=== PATIENT | female | born 1985 | race Caucasian/White ===

== ENCOUNTER → 2024-08-10 | Outpatient (CLI) | payer SELFPAY ==
[2024-08-14 15:07] LABS: HPV APTIMA, High Risk Negative (Negative)
== END | disposition home or self-care (01) ==
LOC: LABSPEC 16:09
PROVIDERS: Referring Provider Advanced Practice Midwife; Visit Provider Advanced Practice Midwife
DX: Z12.4 Encounter for screening for malignant neoplasm of cervix (principal)
CPT/HCPCS: 87624; 88175; G0145

== ENCOUNTER → 2024-09-01 | Outpatient (CLI) | payer SELFPAY ==
--- NOTE | 2024-09-01 09:42 | US_ITS ---
PROCEDURE: TRANSVAGINAL NON- 09/01/2024 REASON FOR EXAM: INFERTILITY TECHNIQUE: TRANSVAGINAL NON- COMPARISON: None FINDINGS: Measurements: Uterus: 10.3 cm x 5.4 cm x 5.2 cm with a volume of 150 mL heterogeneous appearance of the uterus suggestive of fibroid change. Endometrial Thickness: 9.2 mm. It is heterogeneous in echotexture. Right Ovary: 3.2 cm x 2.2 cm x 2.2 cm with a volume of 8.07 mL. Left Ovary: 3 cm x 2.9 cm x 1.3 cm with a volume of 5.87 mL. Uterus: Heterogeneous echotexture suggestive of fibroid change. Endometrium: 9.2 mm. Heterogeneous in appearance. Right ovary: 1.9 cm 1.8 cm x 2 cm complex nodule in the right ovary. Left ovary: Normal size and echotexture. Other: Nabothian cysts. US/Transvaginal Non- IMPRESSION: Heterogeneous appearance of the uterus suggestive of fibroid change. 1.9 cm 1.8 cm x 2 cm complex nodule in the right ovary as described. Sonograph ic follow-up recommended. Reading Location: [facility]
== END | disposition home or self-care (01) ==
PROVIDERS: PCP Family Medicine; Referring Provider Advanced Practice Midwife; Visit Provider Advanced Practice Midwife
DX: N97.9 Female infertility, unspecified (principal); D21.9 Benign neoplasm of connective and other soft tissue, unspecified
CPT/HCPCS: 76830

== ENCOUNTER → 2024-09-19 | Outpatient (CLI) | payer SELFPAY ==
--- OUTSIDE RECORDS SUMMARY | 2024-09-19 08:53 | XMS RPT_ITS | CCD ---
Author Organization [facility]form[facility]ly [facility] Team Providers Care Manager Technical Training Name Role Phone SYDNEE CARTER Primary Care Unavailable VACCARISYDNEE MURILLO Admitting Unavailable VACCARISYDNEE MURILLO Attending Unavailable VACCSYDNEE ASCENCIO Consulting Unavailable PROVIDER, UNKNOWN Consulting Unavailable PROVIDER, UNKNOWN Consulting Unavailable PROVIDER, UNKNOWN Consulting Unavailable Vaccarelli PA-C, Ninoska Primary Care Provider Vidya vailable Vaccarelli PA-C, Ninoska Attending Provider Fawad mead Vaccarejuvei CARLAC, Ninoska Referring Provider Fawad Boudreaux CNM, Zena Attending Provider Zena Boudreaux CNM Referring Provider Vaccarelli PAHanhC, Ninoska Primary Care Provider Vidya Dr. Sydnee Greene MD Primary Care Provider Kaelynarejuvei Randy VASQUEZi Attending Unavailable Vaccarelli PA, Ninoska Primary Care Unavailable Zena Boudreaux Attending Unavailable Zena Boudreaux Referring Unavailable Sydnee Carter Primary Care Unavailable Zena Boudreaux Attending Unavailable Zena Boudreaux Referring Unavailable Vaccarelli PA, Ninoska Primary Care Unavailable Vaccarelli PA, Ninoska Primary Care Unavailable Vaccarejuvei PA, Ninoska Referring Unavailable Zena Boudreaux Attending Unavailable Problems Problem Classification Problem Date Documented Da te Episodic/Chronic Female infertility (4 sources) 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; Translations: [Female infertility, unspecified] Onset: 06-08-2024 Chronic Other and unspecified benign neoplasm (6 sources) Leiomyoma; Translations: [Benign neoplasm of connective and other soft tissue, unspecified] 08-10-2024 Episodic Other and unspecified benign neoplasm (1 source) Benign neoplasm of connective and other soft tissue, unspecified; Translations: [Benign neoplasm of connective and other soft tissue, unspecified] Onset: 08-10-2024 Episodic Other female genital disorders (1 source) Other specified conditions associated with female genital organs and menstrual cycle; Translations: [Other specified conditions associated with female genital organs and menstrual cycle] Onset: 06-08-2024 Episodic Other screening for suspected conditions (not mental disorders or infectious disease) (5 sources) Patient encounter status; Translations: [Encounter for screening for other suspected endocrine disorder] Onset: 08-10-2024 08-10-2024 Episodic Residual codes; unclassified (6 sources) Infertile 08-10-2024 Episodic Results Test Name Value Interpretation Reference Range Facility Transvaginal Non-on 09-01-2024 Transvaginal Non- [facility] Imaging Services [address] [place] [address] Transvaginal Non- MR#: [id number] Acct: [id number] Name: TOREY MCLEAN Rep #: [id number] : 1985 F 38 From: Andres carlson MD PCP: Dr. Sydnee Carter MD Status: REG CLI Study: Transvaginal Non- Date of Exam: Exam# [id number] Ordering Dr: Zena Boudreaux CNM PROCEDURE: TRANSVAGINAL NON- 09/01/2024 REASON FOR EXAM: INFERTILITY TECHNIQUE: TRANSVAGINAL NON- COMPARISON: None FINDINGS: Measurements: Uterus: 10.3 cm x 5.4 cm x 5.2 cm with a volume of 150 mL heterogeneous appearance of the uterus suggestive of fibroid change. Endometrial Thickness: 9.2 mm. It is heterogeneous in echotexture. Right Ovary: 3.2 cm x 2.2 cm x 2.2 cm with a volume of 8.07 mL. Left Ovary: 3 cm x 2.9 cm x 1.3 cm with a volume of 5.87 mL. Uterus: Heterogeneous echotexture suggestive of fibroid change. Endometrium: 9.2 mm. Heterogeneous in appearance. Right ovary: 1.9 cm 1.8 cm x 2 cm complex nodule in the right ovary. Left ovary: Normal size and echotexture. Other: Nabothian cysts. US/Transvaginal Non- IMPRESSION: Heterogeneous appearance of the uterus suggestive of fibroid change. 1.9 cm 1.8 cm x 2 cm complex nodule in the right ovary as described. Sonographic follow-up recommended. Reading Location: [id number] CC: GERA Boudreaux; Dr. Sydnee Carter MD Care Connector: Signed Normal [facility] PAP IG HPV APTIMA 16/18,45on 08-14-2024 ADEQ Comment Normal . [facility] Comment on above: Order Comment: Speci men Comment: [id number] Specimen Comment: No. of containers..01 ThinPrep Vial Result Comment: Sati sfactory for evaluation. Endocervical and/or squamous metaplastic cells (endocervical component) are present. Performed By: #### L 7400.0280 #### [facility] [address] [place], [place], [id number] COMM . Normal . [facility] Comment on above: Order Comment: Speci men Comment: [id number] Specimen Comment: No. of containers..01 ThinPrep Vial Performed By: #### L 7400.0280 #### [facility] [address] [place], [address] COMMENT Comment Normal . [facility] Comment on above: Order Comment: Speci men Comment: [id number] Specimen Comment: No. of containers..01 ThinPrep Vial Result Comment: This liquid based ThinPrep(R) pap test was screened with the use of an image guided system. Performed By: #### L 7400.0280 #### [facility] [address] [place], [address] DIAG Comment Normal . [facility] Comment on above: Order Comment: Speci men Comment: [id number] Specimen Comment: No. of containers..01 ThinPrep Vial Result Comment: NEGA TIVE FOR INTRAEPITHELIAL LESION OR MALIGNANCY. Performed By: #### L 7400.0280 #### [facility] [address] [place], [address] HPV APTIMA, HR Negative Normal Negative [facility] Comment on above: Order Comment: Speci men Comment: [id number] Specimen Comment: No. of containers..01 ThinPrep Vial Result Comment: This nucleic acid amplification test detects fourteen high- risk HPV types (16,18,31,33,35,39,45,51,52,56,58,59,66,68) without differentiation. Performed By: #### L 7400.0280 #### [facility] [address] [place], [address] HPV Eliza Rfx Comment Normal . [facility] Comment on above: Order Comment: Speci men Comment: [id number] Specimen Comment: No. of containers..01 ThinPrep Vial Result Comment: Crit cristy not met, HPV Genotype not performed. Performed at: - [facility] [id number] Vocational Education Teacher: Janel Sales MD, Phone: [phone] Performed at: = - [facility] [address] [id number] Vocational Education Teacher: Janel Sales MD, Phone: [phone] Performed By: #### L 7400.0280 #### [facility] [address] [place], [place], [id number] PAPSMR Comment Normal . [facility] Comment on above: Order Comment: Speci men Comment: [id number] Specimen Comment: No. of containers..01 ThinPrep Vial Result Comment: The Pap smear is a screening test designed to aid in the detection of premalignant and malignant conditions of the uterine cervix. It is not a diagnostic procedure and should not be used as the sole means of detecting cervical cancer. Both false-positive and false-negative reports do occur. Performed By: #### L 7400.0280 #### [facility] [address] [place], [place], [id number] PERFORM Comment Normal . [facility] Comment on above: Order Comment: Speci men Comment: [id number] Specimen Comment: No. of containers..01 ThinPrep Vial Result Comment: Yaquelin Del Cid, Bead Trimmer (ASCP) Performed By: #### L 7400.0280 #### [facility] [address] [place], [address] Cervical or vaginal specimen microscopic examination by liquid based cytology (reportOrdered By: Zena Boudreaux on 08-10-2024 Cytology report Cyto stain.thin prep Doc (Cvx/Vag) Comment . [facility] Comment on above: Criteria not met, HP V Genotype not performed.Performed at: [facility] [id number] Director: Janel Sales MD, Phone: [phone] at: =[facility] [id number] Director: Janel Sales MD, Phone: [phone] Cervical or vagninal specime n microscopic examination by cytology stain (reported asOrdered By: Zena Boudreaux on 08-10-2024 Cytology report Cyto stain Doc (Cvx/Vag) Comment . [facility] Comment on above: The Pap smear is a s creening test designed to aid in thedetection of premalignant and malignant conditions of theuterine cervix. It is not a diagnostic procedure andshould not be used as the sole means of detecting cervicalcancer. Both false-positive and false-negative reports dooccur. Detection in cervical specim en of any of human papilloma virus (HPV) 16, 18, 31, 33,Ordered By: Zena Boudreaux on 08-10-2024 HPV 16+18+31+33+35+39+45+51 +52+56+58+59+66+68 DNA Probe+sig amp Ql (Cvx) Negative Negative [facility] Comment on above: This nucleic acid am plification test detects fourteen high-risk HPV types (16,18,31,33,35,39,45,51,52,56,58,59,66,68)without differentiation. Laboratory - CytologyOrdered By: Zena Boudreaux on 08-10-2024 Bead Trimmer Cyto stain Nom (Cvx/Vag) [ID] Comment . [facility] Comment on above: Mariano Reinoso tologist (ASCP) Laboratory - Miscellaneous t estsOrdered By: Zena Boudreaux on 08-10-2024 Service comment (Unsp spec) [Interp] . . [facility] No Panel InformationOrdered By: Zena Boudreaux on 08-10-2024 Pap Smear Specimen Adequacy Comment . [facility] Comment on above: Satisfactory for milena luation. Endocervical and/or squamous metaplasticcells (endocervical component) are present. 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 Required: No Is patient in pain?: No Allergies No Known Allergies Allergy (Unverified 08/10/24 08:21) Medications ???Medication ???Instructions ???Recorded ???Confirmed ???Type NK 08/10/24 08/10/24 History Is last menstrual period known: Yes Last Menstrual Period: 07/21/24 Post menopausal: No Patient : No : No Do you think of yourself as: straight/heterosexual Current gender identity: female Control Method: none PFSH Medical History (Updated 08/10/24 @ 09:17 by Zena Boudreaux CNM) Vitamin D deficiency PCOS (polycystic ovarian syndrome) Low serum progesterone History of back problems Seasonal allergies Surgical History (Updated 08/09/24 @ 15:45 by Breonna Coon) H/O section Family History (Updated 08/09/24 @ 15:49 by Breonna Coon) Mother , 34 years old Breast cancer Father Arthritis Aunt , 50's Uterine cancer Sister , age 27 Cancer had foot amputated, large tumor removed from groin, and thymus gland removed. cancer spread to her lungs and she . Grandmother , 70's. Ovarian cancer Uterine cancer Social History (Updated 08/09/24 @ 15:45 by Breonna Coon) adopted: No household members: family housing: house number of children: 3 current occupational status: unemployed current occupation: [employer] current occupational exposures/hazards: No pets and animals: Yes pets and animals: dog(s), horse(s) and other details: chickens history of recent travel: Yes ([place]) out of state: Yes out of country: No sexually active: Yes Smoking Status: Never smoker second hand exposure: No alcohol intake: current alcohol intake frequency: holidays/special occasions only Alcohol type: wine substance use type: does not use well-balanced diet: daily or most days caffeine: Yes Type: coffee Number of servings: 1 eating out: other details: 2/ month during the past year weight has: decreased > 10 lbs what type of physical activity do you participate in: walking frequency: 1-2 times per week dominic/jewish: [facility] seatbelt use: sometimes do you feel safe at home: Yes additional social history: - Daniel 4th child @ 10 days old - Trisomy 18 HPI Encounter for routine gynecological examination Details: TOREY MCLEAN is a 38 year old who presents for annual exam. Maternal family hx of cancers- Mother (perri) at age 34 with breast cancer, grandmother (perri) at age 70(?) from uterine cancer and aunt in 50s with uterine cancer. Discussed indepth importance of mammograms, paps and watching for s/s of uterine cancer. Would possibly like to TTC one more time. Has 3 living children, also had child with Trisomy 18 (Nessa) who lived for 10 days. Had labs with previous office except a TSH-ordered. Had external US done this spring which showed a fibroid-requesting internal US. Last PAP: 2011 History of abnormal PAP: no Last mammogram: ordered History of abnormal mammogram: na Colon cancer screening: age 43 Other preventative health care screenings: Rodgers family Female Reproductive History Last Menstrual Period: 07/21/24 Cycle Length: 21-35 Bleeding Duration: 3 Questions: metorrhagia: No, sexually active: Yes, dyspareunia: No and PCB: No ROS Const Constitutional: Reports system reviewed and no additional complaints, except as documented Cardio Card: Reports system reviewed and no additional complaints, except as documented Resp Resp: Reports system reviewed and no additional complaints, except as documented GI GI: Reports system reviewed and no additional complaints, except as documented : Reports system reviewed and no additional complaints, except as documented; Denies difficulty voiding, dysuria or urinary frequency Skin Skin/Breast: Reports system reviewed and no additional complaints, except as documented Neuro Neuro: Reports system reviewed and no additional complaints, except as documented Psych Psych: Reports system reviewed and no additional complaints, except as documented; Denies anhedonia, anxiety or depression Exam Const General: cooperative, healthy appearing, comfortable and no acute distress Orientation: alert, awake and oriented x3 Neck Neck: normal visual inspection and full ROM Thyroid: thyroid normal Chest Breast inspection: normal inspection of the breasts and n (more content not included)... Normal [facility] 06-08-2024 [place] [address] Patient: TOREY MCLEAN Phone#: : [phone] Age: 38 Gender: F Pt. Type: Out Account: [id number] Location: Ordering: SYDNEE CARTER Exam Date: 06/08/2024/9:01 Family Phys: Charge Code: 021097 Physician: Maury Order #: [id number] Dose#: PROCEDURE: PELVIC ULTRASOUND, TRANSABDOMINAL COMPARISON: None. INDICATIONS: Secondary infertility TECHNIQUE: Pelvic ultrasound was performed in the usual manner. FINDINGS: UTERUS: Size is 12.3 x 4.9 x 7.4 cm. Anteriorly is a 12 x 16 millimeter hypoechoic focus, likely fibroid. Endometrial thickness is 5.0 mm. ADNEXAE: Right ovary is 3.8 x 3.6 x 2.5 centimeters. There is a 2.0 x 2.3 x 2.1 centimeter cyst. The left ovary is 2.4 x 1.2 x 2.2 centimeters. CUL-DE-SAC: Normal. No fluid or mass. OTHER: Negative. CONCLUSION: 1. Probable 16 millimeter anterior uterine fibroid. 2. 2.3 centimeter right adnexal cyst. Dictated by: Cara Sherman MD on 06/08/2024 at 16:22 Approved by: Cara Sherman MD on 06/08/2024 at 16:25 Normal [facility] Vital Signs Date Time Vital Sign Value Performing Clinician Clive harp 08-10-2024 08:21-0400 Body height 170.18 cm [facility] 08-10-2024 08:21-0400 Body mass index (BMI) [Ratio] 27.2 kg/m2 [facility] 08-10-2024 08:[id number] [facility] 08-10-2024 08:21-0400 Diastolic blood pressure 72 mm[Hg] [facility] 08-10-2024 08:21-0400 Systolic blood pressure 112 mm[Hg] [facility] Encounters Encounter Date Encounter Type Care Provider Facility Start: 09-01-2024 End: 09-01-2024 ambulatory [facility] Vaccarelli PA-C -Ultrasound [facility] Start: 09-01-2024 End: 09-01-2024 Patient encounter procedure Zena Boudreaux CNM -Ultrasound [facility] Work Phone: Start: 09-01-2024 End: 09-01-2024 ambulatory Zena Boudreaux Facility:[facility] Start: 08-10-2024 End: 08-10-2024 ambulatory [facility] Work Phone: Start: 08-10-2024 End: 08-10-2024 Patient encounter procedure Zena Boudreaux CNM -Laboratory [facility] Work Phone: Start: 08-10-2024 End: 08-10-2024 Patient encounter procedure Zena Boudreaux CNM -[facility] Start: 08-10-2024 End: 08-10-2024 [facility] Start: 08-10-2024 End: 08-10-2024 ambulatory [facility] Vaccarelli PA-C [facility] Work Phone: Start: 08-10-2024 End: 08-10-2024 ambulatory Zena Janusz Facility:[facility] Start: 06-08-2024 Non-patient / Non-visit Ninoska Bui PA-C -[facility] Work Phone: Start: 06-08-2024 End: 06-08-2024 ambulatory SYDNEE CARTER [facility] Procedures Date Procedure Procedure Detail Performing Clinician Start: 09-01-2024 Transvaginal echography Ninoska Bui PA-C Start: 08-10-2024 Liquid based cervica l cytology screening Ninoska Bui PA-C Comment on above: NEGATIVE FOR INTRAEP ITHELIAL LESION OR MALIGNANCY. This liquid based Th inPrep(R) pap test was screened withthe use of an image guided system. Plan of Treatment Date Care Activity Detail Author Liquid based cervical cytology screening [facility] MG Breast - bilateral Screening [facility] MG Breast - bilateral Screening [facility] Thyroid stimulating hormone measurement [facility] US Pelvis transvaginal [facility] Payers Date Payer Category Payer Unknown [id number] 2024 Self-pay 1985 Unknown [id number] [id number] [id number] Unknown Unknown [id number] 2.16.8 [id number] Unknown [id number] 2.16.8 [id number] Unknown [id number] 2.16.8 [id number] Unknown [id number] 2.16.8 [id number] Social History Date Type Detail Facility Start: 08-10-2024 End: 09-05-2024 Tobacco smoking status NHIS Never smoked tobacco (finding) [facility] Start: 1985 Sex Assigned At Female [facility] Gender Identity Identifies as fe male gender (finding) [facility] Sexual Orientation Heterosexual (finding) [facility] Radiology Diagnostic study note 09-01-2024 Note Date & Type Note Facility 09-01-2024 Radiology Diagnostic study note [facility] Imaging Services [address] [place], [place] [address] Transvaginal Non- MR#: [id number] Acct: [id number] Name: TOREY MCLEAN Rep #: [id number] : 1985 F 38 From: Moiz Prince MD PCP: Dr. Sydnee Carter MD Status: R EG CLI Study:Transvaginal Non- Date of Exam: 09/01/24 Exam# [id number] Ordering Dr: Zena Boudreaux CNM PROCEDURE: TRANSVAGINAL NON- 09/01/2024 REASON FOR EXAM: INFERTILITY TECHNIQUE: TRANSVAGINAL NON- COMPARISON: None FINDINGS: Measurements: Uterus: 10.3 cm x 5.4 cm x 5.2 cm with a volume of 150 mL heterogeneous appearance of the uterus suggestive of fibroid change. Endometrial Thickness: 9.2 mm. It is heterogeneous in echotexture. Right Ovary: 3.2 cm x 2.2 cm x 2.2 cm with a volume of 8.07 mL. Left Ovary: 3 cm x 2.9 cm x 1.3 cm with a volume of 5.87 mL. Uterus: Heterogeneous echotexture suggestive of fibroid change. Endometrium: 9.2 mm. Heterogeneous in appearance. Right ovary: 1.9 cm 1.8 cm x 2 cm complex nodule in the right ovary. Left ovary: Normal size and echotexture. Other: Nabothian cysts. US/Transvaginal Non- IMPRESSION: Heterogeneous appearance of the uterus suggestive of fibroid change. 1.9 cm 1.8 cm x 2 cm complex nodule in the right ovary as described. Sonographic follow-up recommended. Reading Location: [id number] CC: GERA Boudreaux; Dr. Sydnee Carter MD ~ Care Connector: Signed [facility] Evaluation note 08-10-2024 Note Date & Type Note Facility 06-04-2025 Evaluation note Diagnosis Onset Date Resolution Fibroid acute August 10, 2024 8:01am Infertility acute August 10 8:01am Encounter for routine gynecological examination noneactive August 10, 2024 8:01am [facility] Work Phone: Clinical Note 06-08-2024 Note Date & Type Note Facility 06-08-2024 Note [facility] Outside Reference US Procedure June 08, 2024 9:01am August 12, 2024 3:46pm Abnormal Evaluation note Note Date & Type Note Facility Evaluation note Diagnosis Onset Date Resolution Fibroid acute August 10, 2024 8:01am Infertility acute August 10 8:01am Encounter for routine gynecological examination noneactive August 10, 2024 8:01am [facility] Work Phone: Reason for referral (narrative) Note Date & Type Note Facility Reason for referral (narrative) No reason for referral information available [facility] Work Phone: Summary Purpose Family History No Family History Records Found Relationship Condition Age at Onset Recorded Date/T bee mother Malignant neoplasm of breast Unknown father Arthritis Unknown aunt Malignant neoplasm of uterus Unknown sister Malignant neoplasm Unknown grandmother Malignant neoplasm of ovary Unknown Malignant neoplasm of uterus Unknown Advance Directives No Advanced Directives Records FoundNo Advanced Directives Records Found Chief Complaint and Reason for Visit Chief Complaint Admit Date 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) August 10, 2024 8:01a m INFERTILITY, FIBROID September 01, 2024 9:3 3am Reason for Visit Admit Date Fibroid August 10, 2024 8:01a m Infertility August 10, 2024 8:01a m Encounter for routine gynecological exam ination August 10, 2024 8:01am Chief Complaint Admit Date 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) August 10, 2024 8:01a m Additional Source Comments INFORMATION SOURCE (unrecogn ized section and content) DATE CREATED AUTHOR 06/11/2024 Shola Moncada [facility] DATE CREATED AUTHOR AUTHOR'S ORGANIZ ATION 09/08/2024 [facility] Care Teams (unrecognized sec tion and content) Team Status: Active Member Role Status Dates Ninoska VASQUEZ PA-C Primary Care Provider Active Team Status: Inactive Member Role Status Dates Ninoska VASQUEZ PA-C Primary Care Provider Active Start: August 10, 2024 End: August 10, 2024 Ninoska Vaccarelli PA, PA-C Referring Provider Active Start: August 10, 2024 End: August 10, 2024 Zena Boudreaux CNM Attending Provider Active S tart: August 10, 2024 End: August 10, 2024 Team Status: Active Member Role Status Dates Ninoska Vaccarelli PA, PA-C Primary Care Provider Active Start: June 08, 2024 Ninoska Vaccarelli PA, PA-C Attending Provider Active Start: June 08, 2024 Team Status: Inactive Member Role Status Dates Ninoska Vaccarelli PA, PA-C Primary Care Provider Active Start: August 10, 2024 End: August 10, 2024 Zena Boudreaux CNM Attending Provider Active S tart: August 10, 2024 End: August 10, 2024 Zena Boudreaux CNM Referring Provider Active S tart: August 10, 2024 End: August 10, 2024 Team Status: Active Member Role/Relationship Status Dates Dr. Sydnee Carter MD Primary Care Provider Active Team Status: Active Member Role/Relationship Status Dates Ninoska Vaccarelli PA, PA-C Primary Care Provider Active Start: June 08, 2024 Ninoska Vaccarelli PA, PA-C Attending Provider Active Start: June 08, 2024 Team Status: Inactive Member Role/Relationship Status Dates Ninoska Vaccarelli PA, PA-C Primary Care Provider Active Start: August 10, 2024 End: August 10, 2024 Ninoska Vaccarelli PA, PA-C Referring Provider Active Start: August 10, 2024 End: August 10, 2024 Zena Boudreaux CNM Attending Provider Active S tart: August 10, 2024 End: August 10, 2024 Team Status: Inactive Member Role/Relationship Status Dates Ninoska Vaccarelli PA, PA-C Primary Care Provider Active Start: August 10, 2024 End: August 10, 2024 Zena Boudreaux CNM Attending Provider Active S tart: August 10, 2024 End: August 10, 2024 Zena Boudreaux CNM Referring Provider Active S tart: August 10, 2024 End: August 10, 2024 Team Status: Inactive Member Role/Relationship Status Dates Zena Boudreaux CNM Attending Provider Active S tart: September 01, 2024 End: September 01, 2024 Zena Boudreaux CNM Referring Provider Active S tart: September 01, 2024 End: September 01, 2024 Dr. Sydnee Carter MD Primary Care Provider Active Start: September 01, 2024 End: September 01, 2024 Goals (unrecognized section and content) Goals may be documented in a n alternate sectionGoals may be documented in an alternate sectionGoals may be documented in an alternate section FOR RECORDS PERTAINING TO PATIENTS WHO ARE OR HAVE BEEN ENROLLED IN A CHEMICAL DEPENDENCY/SUBSTANCEABUSE PROGRAM, SOME INFORMATION MAY BE OMITTED. This clinical summary was aggregated from multiple sources. Caution should be exercised in using it in the provision of clinical care. This summary normalizes information from multiple sources, and as a consequence, information in this document may materially change the coding, format and clinical context of patient data. In addition, data may be omitted in some cases. CLINICAL DECISIONS SHOULD BE BASED ON THE PRIMARY CLINICAL RECORDS. [employer] provides no warranty or guarantee of the accuracy or completeness of information in this document.
== END | disposition home or self-care (01) ==
PROVIDERS: PCP Family Medicine; Visit Provider Advanced Practice Midwife
DX: Z13.29 Encounter for screening for other suspected endocrine disorder (principal)
CPT/HCPCS: 36415; 84443

== ENCOUNTER → 2024-12-12 | Outpatient (CLI) | payer SELFPAY ==
--- NOTE | 2024-12-12 12:57 | US_ITS ---
PROCEDURE: PELVIC W/ TRANSVAGINAL 12/12/2024 REASON FOR EXAM: FOLLOW UP OVARIAN NODULE ON RIGHT TECHNIQUE: Procedure Code: [id number] Modality: US Procedure: PELVIC W/ TRANSVAGINAL COMPARISON: Pelvic ultrasound dated 09/01/2024. FINDINGS: Measurements: Uterus: 11.3 x 7.9 x 5.1 cm with a volume of 237 mL Endometrial Thickness: 12 mm. Trilaminar appearance is noted. Endometrium is hyperechoic. Right Ovary: 4.0 x 3.0 x 2.3 cm with a volume of 14.3 mL. Left Ovary: 3.4 x 3.0 x 2.5 cm. With a volume of 13.1 mL. Uterus: The uterus is anteverted. Heterogeneous echotexture is noted throughout the myometrium. This could be due to uterine fibroids. No discrete mass is seen. Nabothian cysts are seen. There is no IUD. Endometrium: Measures 12 mm. 1st day of last menstrual period was 12/02/2024. Right ovary: Measures 4.0 x 3.0 x 2.3 cm. There is a cyst identified measuring 2.3 x 2.2 x 1.9 cm. This cystic mass has slightly increased in size when compared to the prior exam dated 09/01/2024. At that time this mass measured 2.0 x 1.9 x 1.8 cm. This cyst does have slightly irregular margins. It does appear to have some faint internal echoes. This cyst appears primarily benign however, 1 more a short-term follow-up ultrasound in 6 weeks is recommended when she is in a different phase of her menstrual cycle. There is blood flow to the ovary. Left ovary: Measures 3.4 x 3.0 x 2.5 cm. Contour and echogenicity are within normal limits. There are no masses seen. There is blood flow to the ovary. Other: There is no free fluid in the cul-de-sac. Urinary bladder measures 9.1 x 7.5 x 6.3 cm. Bladder volume is 224 mL. Bladder wall is smooth. There are no masses within the urinary bladder. US/Pelvic w/ Transvaginal IMPRESSION: The endometrial stripe thickness measures 12 mm. The 1st day of her last menst rual period was 12/02/2024. There is a cyst involving the right ovary. It has slightly increased in size. 1 more short-term follow-up ultrasound in 6 weeks is recommended when she is in a different phase of her menstrual cycle for re-e valuation. This will ensure that she is being imaged in a different phase of the menstrual cycle. Reading Location: [id number]
--- OUTSIDE RECORDS SUMMARY | 2024-12-12 15:37 | XMS RPT_ITS | CCD ---
Author Organization [facility] CliniSyia Care Team Providers Care Crusher Feeder Name Role Phone SYDNEE CARTER Primary Care Unavailable SYDNEE CARTER Admitting Unavailable VACCSYDNEE ASCENCIO Attending Unavailable SYDNEE CARTER Consulting Unavailable PROVIDER, UNKNOWN Consulting Unavailable PROVIDER, UNKNOWN Consulting Unavailable PROVIDER, UNKNOWN Consulting Unavailable Vaccarealdo PAHanhC, Ninoska Primary Care Provider Vidya varandall Bui PA-C, Ninoska Attending Provider Fawad Bui PA-C, Ninoska Referring Provider Zena Handy CNM Attending Provider [phone] Zena Boudreaux CNM Referring Provider Ramya PATEL, Ninoska Primary Care Provider Vidya jakeilaDr. Sydnee Casillas MD Primary Care Provider Dr. Sydnee Carter MD Referring Provider Dr. Yaa Bella DO Attending Provider Yaa Bella Attending Sydnee Navas Referring Unavailable Sydnee Carter Primary Care Unavailable Ninoska Wallace Attending Unavailable Ramya VASQUEZ, Ninoska Primary Care Unavailable VaccNinoska Morris Referring Unavailable Ramya VASQUEZ, Ninoska Primary Care Unavailable Zena Boudreaux Attending Unavailable Zena Boudreaux Attending Unavailable Sydnee Carter Primary Care Unavailable Sydnee Carter Primary Care Unavailable Zena Boudreaux Referring Unavailable Zena Boudreaux Attending Unavailable Ramya VASQUEZ, Ninoska Primary Care Unavailable Zena Boudreaux Referring Unavailable Zena Boudreaux Attending Unavailable Naren, Sydnee Primary Care Unavailable Yaa Bella Referring Unavailabl e Yaa Bella Attending Unavailabl e Medications Current Medications Medication Drug Class(es) Dates Sig (Normalized) Sig (Original) fluconazole 150 mg oral tablet (2 sources) Azole Antifungal Start: 09-19-2024 Fluconazole 150 mg tablet Active 150 mg PO Every 3 Days 2 0 2 September 19, 2024 12:00am Problems Active Problems Problem Classification Problem Date Documented Da te Episodic/Chronic Female infertility (4 sources) 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; Translations: [Female infertility, unspecified] Onset: 06-08-2024 Chronic Other and unspecified benign neoplasm (11 sources) Leiomyoma; Translations: [Benign neoplasm of connective and other soft tissue, unspecified] 08-10-2024 Episodic Other female genital disorders (1 source) Other specified conditions associated with female genital organs and menstrual cycle; Translations: [Other specified conditions associated with female genital organs and menstrual cycle] Onset: 06-08-2024 Episodic Other screening for suspected conditions (not mental disorders or infectious disease) (8 sources) Patient encounter status; Translations: [Encounter for screening for other suspected endocrine disorder] Onset: 08-15-2024 08-10-2024 Episodic Ovarian cyst (5 sources) Cyst of ovary; Translations: [Unspecified ovarian cyst, unspecified side] Onset: 09-19-2024 09-19-2024 Episodic Residual codes; unclassified (11 sources) Infertile 08-10-2024 Episodic Past or Other Problems Problem Classification Problem Date Documented Da te Episodic/Chronic Other and unspecified benign neoplasm (1 source) Benign neoplasm of connective and other soft tissue, unspecified; Translations: [Benign neoplasm of connective and other soft tissue, unspecified] Onset: 08-10-2024 Episodic Results Test Name Value Interpretation Reference Range Facility Manager Garden Office Visit Reporton 09-19-2024 Manager Garden Office Visit Report [facility] [address], [address] [place] [address] OFFICE VISIT Date of Service: 09/19/24 MR#: [id number] Acct: [id number] Name: TOREY MCLEAN Rep #: [id number] : 1985 Provider: Dr. Yaa Hernandez DO Age/Sex: 38/F Location: [facility] Status: Signed Intake Vital Signs 08/10/24 08:21 09/05/24 15:55 09/19/24 08:22 Height 5 ft 7 in 5 ft 7 in 5 ft 7 in Weight: 170 lb BMI 26.6 BP 111/74 Intake Visit Reasons: ovarian nodule Chief Complaint: Ovarian Nodule Director Of Digital Marketing Required: No Is patient in pain?: No Allergies No Known Allergies Allergy (Unverified 09/19/24 08:25) Medications ???Medication ???Instructions ???Recorded ???Confirmed ???Type fluconazole 150 mg tablet 150 mg PO Q3D 2 doses #2 tabs 09/0609/19/24 Rx Post menopausal: No PFSH Medical History Vitamin D deficiency PCOS (polycystic ovarian syndrome) Low serum progesterone History of back problems Seasonal allergies Surgical History H/O section Family History Mother , 34 years old Breast cancer Father Arthritis Aunt , 50's Uterine cancer Sister , age 27 Cancer had foot amputated, large tumor removed from groin, and thymus gland removed. cancer spread to her lungs and she . Grandmother , 70's. Ovarian cancer Uterine cancer Social History adopted: No household members: family housing: house number of children: 3 current occupational status: unemployed current occupation: [employer] current occupational exposures/hazards: No pets and animals: [...] in: walking frequency: 1-2 times per week dominic/adventist: Alvin seatbelt use: sometimes do you feel safe at home: Yes additional social history: - Daniel 4th child @ 10 days old - Trisomy 18 HPI ovarian nodule Details: TOREY MCLEAN is a 38 year old (one section and 10 days later with trimsomy 18) who presents with concerns of a 2 cm ovarian nodule picked up on ultrasound 09/01/24 on the right side. There was some free fluid in the cul-de-sac. Prior to this in May there was an ultrasound that was done that showed a cyst on the right ovary. The patient was told by the oil lease buyer that because of her mother's history of passing from breast cancer at age 37, she wanted to make sure this was not cancer. Her maternal aunt also had uterine cancer. She states that the [facility] [employer] tested her for brca and she was negative. She was hoping to get answers from the blood test today, however it looks like only a TSH was ordered. She denies unexplained weight loss, bowel changes, weakness, fatigue. She also gives me an background history of infertility that started after her second child. She went 5 years without being able to conceive until ultrasound was done showing a polyp that was removed. She then got and delivered a term baby and then got again and this was the trisomy 18 baby. The reason that Zena ordered the ultrasound this time was to make sure no further polyp was present in the endometrium. FINDINGS: Measurements: Uterus: 10.3 cm x 5.4 [...] right ovary as described. Sonographic follow-up recommended. History 4 Elective abortions Hx Para Spontaneo (more content not included)... Normal [facility] TSH DL <= 0.005 mIU/L QnOrde red By: Zena Boudreaux on 09-19-2024 TSH Qn 1.330 uIU/mL 0.300-4.200 [facility] Thyroid Stim Hormone (TSH)on 09-19-2024 TSH 1.330 uIU/mL Normal 0.300-4.200 [facility] Comment on above: Performed By: #### L 501.9520 #### [facility] Laboratory [address] [place], [place], [address] Transvaginal Non-on 09-01-2024 Transvaginal Non- [facility] Imaging Services [address] [place], [place] [address] Transvaginal Non- MR#: [id number] Acct: [id number] Name: TOREY MCLEAN Rep #: [id number] : 1985 F 38 From: Andres carlson MD PCP: Dr. Sydnee Carter MD Status: REG CLI Study: Transvaginal Non- Date of Exam: Exam# [id number] Ordering Dr: Zena Boudreaux [facility] PROCEDURE: TRANSVAGINAL NON- 09/01/2024 REASON FOR EXAM: [...] as described. Sonographic follow-up recommended. Reading Location: [id number] CC: GERA Boudreaux; Dr. Sydnee Carter MD Animal Nutrition Teacher: Signed Normal [facility] PAP IG HPV APTIMA 16/18,45on 08-14-2024 ADEQ Comment Normal . [facility] Comment on above: Order Comment: Speci men Comment: [id number] Specimen Comment: No. of containers..01 ThinPrep Vial Result Comment: Sati sfactory for evaluation. Endocervical and/or squamous metaplastic cells (endocervical component) are present. Performed By: #### L 7400.0280 #### [facility] Laboratory [address] [place], [place], [id number] COMM . Normal . [facility] Comment on above: Order Comment: Speci men Comment: [id number] Specimen Comment: No. of containers..01 ThinPrep Vial Performed By: #### L 7400.0280 #### [facility] Laboratory [address] [place], [place], [id number] COMMENT Comment Normal . [facility] Comment on above: Order Comment: Speci men Comment: [id number] Specimen Comment: No. of containers..01 ThinPrep Vial Result Comment: This liquid based ThinPrep(R) pap test was screened with the use of an image guided system. Performed By: #### L 7400.0280 #### [facility] Laboratory [address] [place], [place], [id number] DIAG Comment Normal . [facility] Comment on above: Order Comment: Speci men Comment: [id number] Specimen Comment: No. of containers..01 ThinPrep Vial Result Comment: NEGA TIVE FOR INTRAEPITHELIAL LESION OR MALIGNANCY. Performed By: #### L 7400.0280 #### [facility] Laboratory [address] [place], [place], [id number] HPV APTIMA, HR Negative Normal Negative [facility] Comment on above: Order Comment: Speci men Comment: [id number] Specimen Comment: No. of containers..01 ThinPrep Vial Result Comment: This nucleic acid amplification test detects fourteen high- risk HPV types (16,18,31,33,35,39,45,51,52,56,58,59,66,68) without differentiation. Performed By: #### L 7400.0280 #### [facility] Laboratory [address] [place], [address] HPV Eliza Rfx Comment Normal . [facility] Comment on above: Order Comment: Speci men Comment: [id number] Specimen Comment: No. of containers..01 ThinPrep Vial Result Comment: Crit eria not met, HPV Genotype not performed. Performed at: - [facility] [id number] Shop Service Technician: Janel Sales MD, Phone: [phone] Performed at: =G - [facility] [id number] Shop Service Technician: Janel Sales MD, Phone: [phone] Performed By: #### L 7400.0280 #### [facility] Laboratory [address] [place], [address] PAPSMR Comment Normal . [facility] Comment on above: Order Comment: Speci men Comment: [id number] Specimen Comment: No. of containers..01 ThinPrep Vial Result Comment: The Pap smear is a screening test designed to aid in the detection of premalignant and malignant conditions of the uterine cervix. It is not a diagnostic procedure and should not be used as the sole means of detecting cervical cancer. Both false-positive and false-negative reports do occur. Performed By: #### L 7400.0280 #### [facility] Laboratory [address] [place], [place], [id number] PERFORM Comment Normal . [facility] Comment on above: Order Comment: Speci men Comment: [id number] Specimen Comment: No. of containers..01 ThinPrep Vial Result Comment: Yaquelin Del Cid, Electric Bath Attendant (ASCP) Performed By: #### L 7400.0280 #### [facility] Laboratory [place], [address] Cervical or vaginal specimen microscopic examination by liquid based cytology (reportOrdered By: Zena Boudreaux on 08-10-2024 Cytology report Cyto stain.thin prep Doc (Cvx/Vag) Comment . [facility] Comment on above: Criteria not met, HP V Genotype not performed.Performed at: [facility] [id number] Director: Janel Sales MD, Phone: [phone] at: =[facility] [id number] Director: Janel Sales MD, Phone: [phone] Cervical or vagninal specime n microscopic examination by cytology stain (reported asOrdered By: Zena Boudreaux on 08-10-2024 Cytology report Cyto stain Doc (Cvx/Vag) Comment . [facility] Comment on above: The Pap smear is [...] DNA Probe+sig amp Ql (Cvx) Negative Negative [facility] Comment on above: This nucleic acid am plification test detects fourteen high-risk HPV types (16,18,31,33,35,39,45,51,52,56,58,59,66,68)without differentiation. Laboratory - CytologyOrdered By: Zena Boudreaux on 08-10-2024 Electric Bath Attendant Cyto stain Nom (Cvx/Vag) [ID] Comment . [facility] Comment on above: Mariano Reinoso tologist (ASCP) Laboratory - Miscellaneous t estsOrdered By: Zena Boudreaux on 08-10-2024 Service comment (Unsp spec) [Interp] . . [facility] No Panel InformationOrdered By: Zena Boudreaux on 08-10-2024 Pap Smear Specimen Adequacy Comment . [facility] Comment on above: Satisfactory for milena luation. Endocervical and/or squamous metaplasticcells (endocervical component) are present. 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 Normal [facility] 06-08-2024 [place] [address] Patient: TOREY MCLEAN Phone#: : 1985 Age: 38 Gender: F Pt. Type: Out Account: [id number] Location: Ordering: SYDNEE CARTER Exam Date: 06/08/2024/9:01 Family Phys: Charge Code: [id number] Physician: [place] Order #: [id number] Dose#: PROCEDURE: PELVIC ULTRASOUND, TRANSABDOMINAL COMPARISON: None. [...] Cara Sherman MD on 06/08/2024 at 16:25 [facility] Vital Signs Date Time Vital Sign Value Performing Clinician Mckinleydar loyd 09-19-2024 08:22-0400 [facility] 09-19-2024 08:22-0400 Body mass index (BMI) [Ratio] 26.6 kg/m2 [facility] 09-19-2024 08:22-0400 Body weight 77.11 kg [facility] 09-19-2024 08:22-0400 Diastolic blood pressure 74 mm[Hg] [facility] 09-19-2024 08:22-0400 Systolic blood pressure 111 mm[Hg] [facility] 08-10-2024 08:21-0400 Body height 170.18 cm [facility] 08-10-2024 08:21-0400 Body mass index (BMI) [Ratio] 27.2 kg/m2 [facility] 08-10-2024 08:21-0400 Body weight 78.92 kg [facility] 08-10-2024 08:21-0400 Diastolic blood pressure 72 mm[Hg] [facility] 08-10-2024 08:21-0400 Systolic blood pressure 112 mm[Hg] [facility] Encounters Encounter Date Encounter Type Care Provider Facility Start: 12-12-2024 ambulatory Sydnee Akers ty:[facility] Start: 09-19-2024 End: 09-19-2024 [facility]ulatory [facility] Start: 09-19-2024 End: 09-19-[address] [facility] Work Phone: Start: 09-19-2024 End: 09-19-2024 ambulatory Zena Boudreaux Facility:[facility] Start: 09-01-2024 End: 09-01-2024 ambulatory Ninoska Vaccarelli PA-C -Ultrasound [facility] Start: 09-01-2024 End: 09-01-2024 Patient encounter procedure Zena Boudreaux CNM -Ultrasound [facility] Work Phone: Start: 09-01-2024 End: 09-01-2024 ambulatory Sydnee Carter Facility:[facility] Start: 08-10-2024 End: 08-10-2024 ambulatory Ninoska Vaccarelli PA-C [facility] Work Phone: Start: 08-10-2024 End: 08-10-2024 Patient encounter procedure Zena VAZQUEZ -Laboratory [facility] Work Phone: Start: 08-10-2024 End: 08-10-2024 Patient encounter procedure Zena Boudreaux CNM -[facility] Start: 08-10-2024 End: 08-10-2024 Patient encounter status Zena Boudreaux [facility] Start: 08-10-2024 End: 08-10-2024 ambulatory Ninoska Vaccarelli PA-C [facility] Work Phone: Start: 08-10-2024 End: 08-10-2024 ambulatory Ninoska Vaccarelli PA Facility:[facility] Start: 06-08-2024 Non-patient / Non-visit Ninoska [facility]lli [facility] Work Phone: Start: 06-08-2024 End: 06-08-2024 [facility] Procedures Date Procedure Procedure Detail Performing Clinician Start: 09-01-2024 Transvaginal echography Ninoska Vaccarelli PA-C Start: 08-10-2024 Liquid based cervica l cytology screening Ninoska Vaccarelli PA-C Comment on above: NEGATIVE FOR INTRAEP ITHELIAL LESION OR MALIGNANCY. This liquid based Th inPrep(R) pap test was screened withthe use of an image guided system. Plan of Treatment Date Care Activity Detail Author Start: 09-19-2024 Thyroid stimulating hormone measurement [facility] Liquid based cervica l cytology screening [facility] MG Breast - bilateral Screening [facility] MG Breast - bilateral Screening [facility] Thyroid stimulating hormone measurement [facility] US Pelvis [facility] Payers Date Payer Category Payer Unknown [id number] 2024 Self-pay 1985 Unknown [id number] 2.16.8 [id number] Unknown Unknown [id number] 2.16.8 [id number] Unknown [id number] 2.16.8 [id number] Unknown [id number] 2.16.8 [id number] Unknown [id number] 2.16.8 [id number] Unknown [id number] 2.16.8 [id number] Unknown [id number] 2.16.8 [id number] Unknown [id number] 2.16.8 [id number] Social History Date Type Detail Facility Start: 08-10-2024 End: 09-05-2024 Tobacco smoking status NHIS Never smoked tobacco (finding) [facility] Start: 1985 Sex Assigned At Female [facility] Gender Identity Identifies as fe male gender (finding) [facility] Sexual Orientation Heterosexual (finding) [facility] Radiology Diagnostic study note 09-01-2024 Note Date & Type Note Facility 09-01-2024 Radiology Diagnostic study note [facility] Imaging Services [address] [place], [place] [address] Transvaginal Non- MR#: [id number] Acct: [id number] Name: TOREY MCLEAN Rep #: [id number] : 1985 F 38 From: Moiz Prince MD PCP: Dr. Sydnee Carter MD Status: R EG CLI Study:Transvaginal Non- Date of Exam: 09/01/24 Exam# [id number] Ordering Dr: Zena Boudreaux CNM PROCEDURE: TRANSVAGINAL [...] as described. Sonographic follow-up recommended. Reading Location: [id number] CC: GERA Boudreaux; Dr. Sydnee Carter MD ~ Animal Nutrition Teacher: Signed [facility] Evaluation note 08-10-2024 Note Date & Type Note Facility 08-10-2024 Evaluation note Diagnosis Onset Date Resolution Fibroid acute August 10, 2024 8:01am Infertility acute August 10 8:01am Encounter for routine gynecological examination noneactive August 10, 2024 8:01am [facility] Work Phone: Evaluation note 08-10-2024 Note Date & Type Note Facility 08-10-2024 Evaluation note Diagnosis Onset Date Resolution Fibroid acute August 10, 2024 8:01am Infertility acute August 10 8:01am Encounter for routine gynecological examination noneactive August 10, 2024 8:01am Fibroid acute September 19 8:19am Infertility acute September 19 8:19am Ovarian cyst acute September 19, 025 8:19am Screening for thyroid disorder acute September 19, 2024 8:19am [facility] Work Phone: Clinical Note 06-08-2024 Note Date & Type Note Facility 06-08-2024 Note [facility] Outside Reference US Procedure June 08, 2024 9:01am August 12, 2024 3:46pm Abnormal Clinical Note 06-08-2024 Note Date & Type Note Facility 06-08-2024 Note [facility] Outside Reference US Procedure June 08, 2024 9:01am August 12, 2024 3:46pm Abnormal Clinical Note 06-08-2024 Note Date & Type Note Facility 06-08-2024 Note [facility] Outside Reference US Procedure June 08, 2024 9:01am August 12, 2024 3:46pm Abnormal Evaluation note Note Date & Type Note Facility Evaluation note Diagnosis Onset Date Resolution Fibroid acute August 10, 2024 8:01am Infertility acute August 10 8:01am Encounter for routine gynecological examination noneactive August 10, 2024 8:01am [facility] [employer] Work Phone: Reason for referral (narrative) Note Date & Type Note Facility Reason for referral (narrative) No reason for referral information available [facility] Work Phone: Summary Purpose Family History No [...] for Visit Chief Complaint Admit Date 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) August 10, 2024 8:01a m INFERTILITY, FIBROID September 01, 2024 9:3 3am Reason for Visit Admit Date Fibroid August 10, 2024 8:01a m Infertility August 10, 2024 8:01a m Encounter for routine gynecological exam ination August 10, 2024 8:01am Chief Complaint Admit Date 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) August 10, 2024 8:01a m Chief Complaint Admit Date 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) August 10, 2024 8:01a m INFERTILITY, FIBROID September 01, 2024 9:3 3am ovarian nodule September 19, 2024 8:19 am Reason for Visit Admit Date Fibroid August 10, 2024 8:01a m Infertility August 10, 2024 8:01a m Encounter for routine gynecological exam ination August 10, 2024 8:01am Fibroid September 19, 2024 8:19 am Infertility September 19, 2024 8:19 am Ovarian cyst September 19, 2024 8:19 am Screening for thyroid disorder September 8:19am Additional Source Comments INFORMATION SOURCE (unrecogn ized section and content) DATE CREATED AUTHOR 06/11/2024 [facility] DATE CREATED AUTHOR AUTHOR'S ORGANIZ ATION 12/10/2024 [facility] Care Teams (unrecognized sec tion and content) Team Status: Active Member Role Status Dates Ninoska VASQUEZ, PA-C Primary Care Provider Active Team Status: Inactive Member Role Status Dates Ninoska VASQUEZ, PA-C Primary Care Provider Active Start: August 10, 2024 End: August 10, 2024 Ninoska VASQUEZ, PA-C Referring Provider Active Start: August 10, 2024 End: August 10, 2024 Zena Boudreaux CNM Attending Provider Active S tart: August 10, 2024 End: August 10, 2024 Team Status: Active Member Role Status Dates Ninoska VASQUEZ, PA-C Primary Care Provider Active Start: June 08, 2024 Ninoska VASQUEZ, PA-C Attending Provider Active Start: June 08, [...] Team Status: Active Member Role/Relationship Status Dates Nnioska Bui PA, PA-C Primary Care Provider Active Start: June 08, 2024 Ninoska Bui PA, PA-C Attending Provider Active Start: June 08, 2024 Team Status: Inactive Member Role/Relationship Status Dates Ninoska Bui PA, PA-C Primary Care Provider Active Start: August 10, 2024 End: August 10, 2024 Ninoska Bui PA, PA-C Referring Provider Active Start: August 10, 2024 End: August 10, 2024 Zena Boudreaux CNM Attending Provider Active S tart: August 10, 2024 End: August 10, 2024 Team Status: Inactive Member Role/Relationship Status Dates Ninoska Bui PA, PA-C Primary Care Provider Active Start: [...] September 01, 2024 End: September 01, 2024 Team Status: Active Member Role/Relationship Status Dates Dr. Sydnee Carter MD Primary Care Provider Active Start: September 19, 2024 Zena Boudreaux CNM Attending Provider Active S tart: September 19, 2024 Team Status: Inactive Member Role/Relationship Status Dates Dr. Sydnee Carter MD Primary Care Provider Active Start: September 19, 2024 End: September 19, 2024 Dr. Sydnee Carter MD Referring Provider Active Start: September 19, 2024 End: September 19, 2024 Dr. Yaa Bella DO Attending Provider Activ e Start: September 19, 2024 End: September 19, 2024 Team Status: Inactive Member Role/Relationship Status Dates Dr. Sydnee Carter MD Primary Care Provider Active Start: September 19, 2024 End: September 19, 2024 Zena Boudreaux CNM Attending Provider Active S tart: September 19, 2024 End: September 19, 2024 Goals (unrecognized section and content) Goals [...] BE BASED ON THE PRIMARY CLINICAL RECORDS. [facility]. provides no warranty or guarantee of the accuracy or completeness of information in this document.
== END | disposition home or self-care (01) ==
PROVIDERS: PCP Family Medicine; Referring Provider Obstetrics & Gynecology; Visit Provider Obstetrics & Gynecology
DX: N83.201 Unspecified ovarian cyst, right side (principal)
CPT/HCPCS: 76830; 76856

== ENCOUNTER → 2025-01-02 | Outpatient (CLI) | payer SELFPAY | END | disposition home or self-care (01) | LOC: LABSPEC 10:18 | PROVIDERS: PCP Family Medicine; Visit Provider Obstetrics & Gynecology | DX: R93.89 Abnormal findings on diagnostic imaging of other specified body structures (principal) | CPT/HCPCS: 88305 ==